=== PATIENT | female | born 1965 | race African-American/Black ===

== ENCOUNTER 2019-04-09 11:45 | Observation (INO) ==
[2019-04-09] MEDS ORDERED: NITROGLYCERIN SL 0.4 MG TABLET SL PRN (12:26)
[2019-04-09] MEDS ORDERED: ENOXAPARIN 100 MG/ML SYRINGE SUBCUT STA (12:26)
[2019-04-09] MEDS ORDERED: ASPIRIN 325 MG TABLET PO STA (12:26)
[2019-04-09 12:40] LABS: Basophils % 0.6 % (0.0-0.8); Eosinophils % 0.5 % (0.00-10.9); Hematocrit 41.3 VOL% (35.7-47.0); Hemoglobin 13.5 GM/DL (12.0-16.0); Immature Granulocytes % 0.2 %; Immature Granulocytes Absolute 0.01 #; Lymphocytes % 30.3 % (21.3-54.2); Mean Corpuscular HGB Conc 32.7 GM/DL (32-36); Mean Corpuscular Volume 89.2 FL (87-102); Mean Platelet Volume 8.6 FL (9.6-12.0); Monocytes % 7.8 % (1.7-12.7); Neutrophils % 60.6 % (38.7-73.9); Platelet Count 224 T/CUMM (130-400); Red Blood Count 4.63 MC/CUMM (3.8-5.5); Red Cell Distribution Width 12.9 % (9.3-17.3); White Blood Count 6.6 T/CUMM (4-12)
[2019-04-09 13:10] LABS: Alanine Aminotransferase 15 U/L (13-56); Albumin 4.3 G/DL (3.4-5.0); Alkaline Phosphatase 85 U/L (45-117); Aspartate Amino Transferase 12 U/L (0-37); Bilirubin,Total < 0.39 MG/DL (0.2-1.0); Blood Urea Nitrogen 15 MG/DL (7-18); Calcium 9.3 MG/DL (8.5-10.1); Glucose 107 MG/DL (74-106); Osmolality,Calculated 277.5 MOS/KG (273-304); Total Protein 7.4 G/DL (6.4-8.3)
[2019-04-09] MEDS ORDERED: traMADol 50 MG TABLET PO PRN (14:30)
[2019-04-09] MEDS ORDERED: ONDANSETRON 4 MG/2 ML VIAL IV PRN (14:30)
[2019-04-09] MEDS ORDERED: ACETAMINOPHEN 325 MG TABLET PO PRN (14:30)
[2019-04-09] MEDS ORDERED: NICOTINE 21 MG/24 HR PATCH TRANSDERM PRN (14:30)
[2019-04-09] MEDS ORDERED: ALUM/MAG/SIMETH/LIDO VISC 1:1 30 ML BOTTLE PO PRN (14:30)
[2019-04-09] MEDS: SODIUM CHLORIDE 0.45% 1,000 ML IV SCH (17:46)
[2019-04-09] MEDS ORDERED: ATORVASTATIN 10 MG TABLET PO SCH (21:00)
[2019-04-10] MEDS: SODIUM CHLORIDE 0.45% 1,000 ML IV SCH (00:03)
[2019-04-10 05:21] LABS: Basophils % 0.7 % (0.0-0.8); Eosinophils # 0.1 10*3/uL (0.0-0.87); Eosinophils % 1.5 % (0.00-10.9); Hematocrit 39.3 VOL% (35.7-47.0); Hemoglobin 12.9 GM/DL (12.0-16.0); Immature Granulocytes % 0.4 %; Immature Granulocytes Absolute 0.02 #; Lymphocytes # 2.8 10*3/uL (1.4-4.0); Lymphocytes % 51.5 % (21.3-54.2); Mean Corpuscular HGB Conc 32.8 GM/DL (32-36); Mean Corpuscular Volume 88.5 FL (87-102); Mean Platelet Volume 8.8 FL (9.6-12.0); Monocytes % 9.7 % (1.7-12.7); Neutrophils % 36.2 % (38.7-73.9); Platelet Count 223 T/CUMM (130-400); Red Blood Count 4.44 MC/CUMM (3.8-5.5); Red Cell Distribution Width 12.7 % (9.3-17.3); White Blood Count 5.5 T/CUMM (4-12)
[2019-04-10 05:42] LABS: Risk Ratio 2.38; Thyroid Stimulating Hormone 2.07 uIU/ml (0.358-3.74); VLDL CHOLESTEROL 15.4 MG/DL
[2019-04-10 06:08] LABS: Lymphocytes 52 % (20-55); Segmented Neutrophils 41 % (50-85)
[2019-04-10 06:09] LABS: Platelet Estimate Adequate; Total Cells Counted 100
[2019-04-10 07:57] LABS: Calcium 8.8 MG/DL (8.5-10.1); Osmolality,Calculated 270.8 MOS/KG (273-304)
[2019-04-10] MEDS ORDERED: diphenhydrAMINE CAP 25 MG CAPSULE PO ONE (08:53)
[2019-04-10] MEDS ORDERED: DIAZEPAM 5 MG TABLET PO ONE (08:53)
[2019-04-10] MEDS ORDERED: MAGNESIUM SULF RIDER 2 GM in PREMIX 1 EACH IV PRN (08:53)
[2019-04-10] MEDS ORDERED: POTASSIUM CHLORIDE RIDER 10 MEQ in PREMIX 1 EACH IV PRN (08:53)
[2019-04-10] MEDS ORDERED: amLODIPine 10 MG TABLET PO SCH (09:00)
[2019-04-10] MEDS ORDERED: PANTOPRAZOLE 40 MG TABLET PO SCH (09:00)
[2019-04-10] MEDS ORDERED: ASPIRIN EC 81 MG TABLET PO SCH (09:00)
[2019-04-10] MEDS ORDERED: NITROGLYCERIN DRIP 50 MG/250 ML BOTTLE IV ONE (10:46)
[2019-04-10] MEDS ORDERED: LIDOCAINE 1% 20 ML VIAL ONE (10:46)
[2019-04-10] MEDS ORDERED: MIDAZOLAM 2 MG/2 ML VIAL ONE (10:47)
[2019-04-10] MEDS ORDERED: HYDROmorphone 2 MG/1 ML VIAL ONE (10:47)
[2019-04-10] MEDS ORDERED: VERAPAMIL 5 MG/2 ML VIAL ONE (10:47)
[2019-04-10] MEDS: ENOXAPARIN 60 MG/0.6 ML SYRINGE SUBCUT SCH ×2 (14:40)
[2019-04-10 17:34] VITALS: BP 118/74
== END 2019-04-10 17:38 | disposition home or self-care (01) ==
LOC: N.ED 11:45 → N.EDINP 11:45 → N.TELEN 16:05
PROVIDERS: ADMIT Internal Medicine; ATTEND Internal Medicine
PROC: CLCCHCL (ICD-10-PCS; 2019-04-10 10:15)